=== PATIENT | female | born 1960 | race American Indian/Alaskan Native ===

== ENCOUNTER 2017-05-08 06:11 | Emergency (ER) | payer BC ==
--- NOTE | 2017-05-08 07:12 | XRay Report ---
FINAL REPORT EXAM: XR ELBOW 2V RT HISTORY: Right elbow pain TECHNIQUE: AP and lateral views of the right elbow were submitted. FINDINGS: There are no skeletal or soft tissue abnormalities. IMPRESSION: Normal exam.
[2017-05-08 08:24] LABS: Anion Gap 16 mmol/L; BUN/Creatinine Ratio 19; Blood Urea Nitrogen 13 mg/dL (7-17); Calcium 9.3 mg/dL (8.4-10.2); Carbon Dioxide 26 mmol/L (22-30); Glucose 98 mg/dL (65-100); Potassium 3.9 mmol/L (3.6-5.0); Sodium 142 mmol/L (137-145)
[2017-05-08 08:26] LABS: Basophils % (Auto) 0.9 % (0.0-1.8); Eosinophils % (Auto) 1.1 % (0.0-4.3); Hematocrit 38.7 % (30.3-42.9); Hemoglobin 12.9 gm/dl (10.1-14.3); Mean Corpuscular HGB Conc 33 % (30-34); Mean Corpuscular Hemoglobin 29 pg (28-32); Mean Corpuscular Volume 88 fl (79-97); Platelet Count 330 K/mm3 (140-440); Red Blood Count 4.38 M/mm3 (3.65-5.03); Red Cell Distribution Width 13.6 % (13.2-15.2); White Blood Count 8.9 K/mm3 (4.5-11.0)
[2017-05-08 08:34] VITALS: BP 134/80
--- NOTE | 2017-05-08 09:12 | Emergency Department Report ---
ED General Adult HPI - General Chief complaint: Upper Respiratory Infection Stated complaint: WHEEZING/COUGH/CONGESTION Time Seen by Provider: 05/08/17 08:17 Source: patient Mode of arrival: Ambulatory Limitations: No Limitations - History of Present Illness Initial comments: Patient has a plug for symptoms. Some of which may be somatic in nature. She states that she's had intermittent coughing for 5 months and already had 2 x- rays. The cough is dry. She states the she came to the emergency department today because she heard a "whistling in her ears" and she thought she was wheezing. 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 She also complains of intermittent left-sided headache but does not have one now. Additionally she presented to triage with "contraction of my right elbow". At the time of my encounter she states that her contraction has resolved but she has some swelling at the right elbow. 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 Apparently the patient was stating that she could not extend her right elbow 3 weeks in triage. An x-ray was obtained. The patient's headache syndrome has been present for years. She had a CT examination here in 2011 and 2013. The first one was read as normal the second one was read as a grade 1 Arnold-Chiari malformation. The patient has been seen and evaluated by neurology and reassured that nothing needs to be done. However she is now telling me that she needs a neurosurgeon. -: month(s) Location: right, upper extremity Radiation: non-radiation Severity scale (0 -10): 0 Quality: aching Consistency: intermittent Improves with: none Worsens with: none Associated Symptoms: headaches. denies: chest pain, diaphoresis, fever/chills, loss of appetite, malaise, nausea/vomiting, rash, seizure, shortness of breath Treatments Prior to Arrival: none - Related Data Previous Rx's Medication Instructions Recorded Last Taken Type Azithromycin [Zithromax Z-KIMBERLY] 250 mg PO DAILY #6 tablet 02/14/14 Unknown Rx oxyCODONE /ACETAMINOPHEN [Percocet 2 tab PO Q6HR PRN #20 tablet 02/14/14 Unknown Rx 5/325] Azithromycin [Zithromax Z-KIMBERLY] 250 mg PO DAILY #6 tablet 05/29/14 Unknown Rx HYDROcodone/APAP 10-325 [[place] 1 each PO Q6HR PRN #12 tablet 05/29/14 Unknown Rx 10-325 mg TAB] Promethazine Dm [Phenergan Dm 5 ml PO Q6H PRN #120 ml 05/29/14 Unknown Rx 6.25/15 mg 5 ml] ALBUTEROL Inhaler [ProAir HFA 2 puff IH Q4H PRN #1 inhalation 05/08/17 Unknown Rx Inhaler] traMADol [Ultram] 50 mg PO Q6HR PRN #14 tablet 05/08/17 Unknown Rx Allergies Allergy/AdvReac Type Severity Reaction Status Date / Time No Known Allergies Allergy Verified 10/15/15 07:54 ED Review of Systems ROS: Stated complaint: WHEEZING/COUGH/CONGESTION Other details as noted in HPI Constitutional: denies: chills, fever Eyes: denies: eye pain, eye discharge, vision change ENT: denies: ear pain, throat pain Respiratory: cough (occasionally not currently or recently significant), wheezing. denies: shortness of breath Cardiovascular: denies: chest pain, palpitations Endocrine: no symptoms reported Gastrointestinal: other (reflux takes omeprazole). denies: abdominal pain, nausea, diarrhea Genitourinary: denies: urgency, dysuria, discharge Musculoskeletal: denies: back pain, joint swelling, arthralgia Skin: denies: rash, lesions Neurological: denies: headache, weakness, paresthesias Psychiatric: denies: anxiety, depression Hematological/Lymphatic: denies: easy bleeding, easy bruising ED Past Medical Hx - Past Medical History Additional medical history: Hypothyroidism stopped taking med 4 yrs ago - Surgical History Additional Surgical History: Hemorrhoidectomy, hysterectomy; hammer toe release - Social History Smoking Status: Never Smoker Substance Use Type: None - Medications Home Medications: Home Medications Medication Instructions Recorded Confirmed Last Taken Type Azithromycin [Zithromax Z-KIMBERLY] 250 mg PO DAILY #6 tablet 02/14/14 Unknown Rx oxyCODONE /ACETAMINOPHEN [Percocet 2 tab PO Q6HR PRN #20 tablet 02/14/14 Unknown Rx 5/325] Azithromycin [Zithromax Z-KIMBERLY] 250 mg PO DAILY #6 tablet 05/29/14 Unknown Rx HYDROcodone/APAP 10-325 [[place] 1 each PO Q6HR PRN #12 tablet 05/29/14 Unknown Rx 10-325 mg TAB] Promethazine Dm [Phenergan Dm 5 ml PO Q6H PRN #120 ml 05/29/14 Unknown Rx 6.25/15 mg 5 ml] ALBUTEROL Inhaler [ProAir HFA 2 puff IH Q4H PRN #1 inhalation 05/08/17 Unknown Rx Inhaler] traMADol [Ultram] 50 mg PO Q6HR PRN #14 tablet 05/08/17 Unknown Rx ED Physical Exam - General Limitations: No Limitations General appearance: alert, in no apparent distress - Head Head exam: Present: atraumatic, normocephalic - Eye Eye exam: Present: normal appearance. Absent: scleral icterus - ENT ENT exam: Present: normal exam, normal orophraynx, mucous membranes moist - Neck Neck exam: Present: normal inspection. Absent: tenderness - Respiratory Respiratory exam: Present: normal lung sounds bilaterally. Absent: respiratory distress - Cardiovascular Cardiovascular Exam: Present: regular rate, normal rhythm. Absent: systolic murmur, diastolic murmur, rubs, gallop - GI/Abdominal GI/Abdominal exam: Present: soft, normal bowel sounds. Absent: distended, tenderness, guarding, rebound, rigid - Extremities Exam Extremities exam: Present: normal inspection, full ROM, tenderness (perhaps some tenderness at the brachial radialis insertion area, no joint tenderness or effusion), normal capillary refill. Absent: pedal edema, calf tenderness - Back Exam Back exam: Present: normal inspection - Neurological Exam Neurological exam: Present: alert, oriented X3, CN II-XII intact. Absent: motor sensory deficit - Psychiatric Psychiatric exam: Present: normal affect, normal mood - Skin Skin exam: Present: warm, dry, intact, normal color. Absent: rash ED Course Vital Signs 05/08/17 05/08/17 06:14 08:30 Temperature 98.3 F 98.0 F Pulse Rate 67 70 Respiratory 18 18 Rate Blood Pressure 147/72 Blood Pressure 134/80 [Left] O2 Sat by Pulse 100 100 Oximetry - Reevaluation(s) Reevaluation #1: The patient's pulse oximetry remained a solid 100% on room air. She had no respiratory symptoms. She is appropriate for outpatient referral. 05/08/17 09:14 ED Medical Decision Making - Lab Data Result diagrams: 05/08/17 07:11 05/08/17 07:11 Laboratory Results - last 24 hr 05/08/17 05/08/17 07:11 07:11 WBC 8.9 RBC 4.38 Hgb 12.9 Hct 38.7 MCV 88 MCH 29 MCHC 33 RDW 13.6 Plt Count 330 Lymph % (Auto) 33.9 [place] % (Auto) 7.3 Eos % (Auto) 1.1 Baso % (Auto) 0.9 Lymph # 3.0 [place] # 0.7 Eos # 0.1 Baso # 0.1 Seg Neutrophils % 56.8 Seg Neutrophils # 5.0 Sodium 142 Potassium 3.9 Chloride 104.0 Carbon Dioxide 26 Anion Gap 16 BUN 13 Creatinine 0.7 Estimated GFR > 60 BUN/Creatinine Ratio 19 Glucose 98 Calcium 9.3 - Radiology Data Radiology results: report reviewed interpreted by me: Elbow is normal. Critical care attestation.: If time is entered above; I have spent that time in minutes in the direct care of this critically ill patient, excluding procedure time. ED Disposition Clinical Impression: Tendinitis of right elbow Reactive airways dysfunction syndrome Qualifiers: Asthma severity: mild Asthma persistence: intermittent Asthma complication type : uncomplicated Qualified Code(s): J45.20 - Mild intermittent asthma, uncomplicated Disposition: - TO HOME OR SELFCARE Is pt being admited?: No Does the pt Need Aspirin: No Condition: Stable Instructions: Reactive Airways Disease (ED), Tendinitis (ED) Additional Instructions: See referral to a lung specialist for your wheezing and coughing problem. See referral to orthopedist should your elbow remain tender. Also follow-up your primary care provider. Prescriptions: ALBUTEROL Inhaler [ProAir HFA Inhaler] 2 puff IH Q4H PRN #1 inhalation PRN Reason: Wheezing traMADol [Ultram] 50 mg PO Q6HR PRN #14 tablet PRN Reason: Pain Referrals: ALYSON VILLA MD [Primary Care Provider] - 3-5 Days BOUCHRA ESPINOZA MD [Staff Physician] - 3-5 Days MERY CEBALLOS MD [Staff Physician] - 3-5 Days Time of Disposition: 09:18
== END 2017-05-08 09:42 | disposition home or self-care (01) ==
LOC: ED 06:11
DX: J45.20 Mild intermittent asthma, uncomplicated (principal); M77.9 Enthesopathy, unspecified; E03.9 Hypothyroidism, unspecified
CPT/HCPCS: 36415; 80048; 85025; 99283

== ENCOUNTER 2018-07-04 20:52 | Emergency (ER) | payer BC ==
[2018-07-04 23:10] VITALS: BP 155/75
[2018-07-05 00:33] LABS: Hematocrit 38.4 % (30.3-42.9); Hemoglobin 12.8 gm/dl (10.1-14.3); Mean Corpuscular HGB Conc 33 % (30-34); Mean Corpuscular Volume 88 fl (79-97); Platelet Count 367 K/mm3 (140-440); Red Blood Count 4.36 M/mm3 (3.65-5.03); Red Cell Distribution Width 13.1 % (13.2-15.2)
[2018-07-05 00:52] LABS: BUN/Creatinine Ratio 16; Blood Urea Nitrogen 13 mg/dL (7-17); Calcium 9.6 mg/dL (8.4-10.2); Hemolysis Index 7
--- NOTE | 2018-07-05 01:06 | Cat Scan Report ---
FINAL REPORT PROCEDURE: CT HEAD/BRAIN WO CON TECHNIQUE: Computerized tomography of the head was performed without contrast material. HISTORY: headache dizzy COMPARISON: Prior CT scan of the brain 02/14/2014 FINDINGS: Brain: Brain density appears normal. No evidence of intracranial hemorrhage. No parenchymal hemorrh age, mass lesions or mass effect are seen. No abnormal extraxial fluid collects or masses are seen. Ventricles: Ventricles are normal size and are midline. Bone Windows: No evidence of skull fracture. Paranasal sinuses: There is opacification of the visualized portion of the right side of the sphenoid sinus. This is unchanged from the prior study. Visualized paranasal sinuses otherwise are clear. Mastoid air cells: Clear IMPRESSION: Negative unenhanced CT scan of the brain. Persistent right-sided sphenoid sinus disease.
[2018-07-05 01:27] LABS: INR 0.89 (0.87-1.13)
[2018-07-05] MEDS ORDERED: REGLAN PO ONE (04:38)
[2018-07-05] MEDS ORDERED: DECADRON IM ONE (04:38)
[2018-07-05] MEDS ORDERED: BENADRYL PO ONE (04:38)
[2018-07-05] MEDS ORDERED: TYLENOL PO ONE (04:38)
--- NOTE | 2018-07-05 04:43 | Emergency Department Report ---
ED Headache HPI - General Chief Complaint: Headache Stated Complaint: HEADACHE Time Seen by Provider: 07/05/18 04:32 - History of Present Illness Initial Comments: pt is a a57 y/o aaf with hx of migraine headache who presents for headche intermittent for past 2 weeks pt denies fever or chills does endorse dental extraction 1 1/2 weeks ago however did not take abx as they upset her stomach, pt describes headache as 7/10 pressures occipital with aura this is same location as usual headche but has persisted for longer, there is no dizziness no lightheadedness mild photophobia no n/v pain is exacerbated by activity pain is relieved nothing tried, pt has follow up with neurology in am Dr. Jang but want pain control tonight. Timing/Duration: other (2 weeks intermittent ) Quality: pressure Head Injury Location: occipital Recent Head Trauma: frequent headaches Modifying Factors: improves with: exposure to light, movement Associated Symptoms: other (photophobia ) Allergies/Adverse Reactions: Allergies No Known Allergies Allergy (Verified 10/15/15 07:54) Home Medications: Ambulatory Orders Azithromycin [Zithromax Z-KIMBERLY] 250 mg PO DAILY #6 tablet 02/14/14 oxyCODONE /ACETAMINOPHEN [Percocet 5/325] 2 tab PO Q6HR PRN #20 tablet 02/14/14 Azithromycin [Zithromax Z-KIMBERLY] 250 mg PO DAILY #6 tablet 05/29/14 HYDROcodone/APAP 10-325 [[place] 10-325 mg TAB] 1 each PO Q6HR PRN #12 tablet 05/29/14 Promethazine Dm (Nf) [Phenergan Dm 6.25/15 mg 5 ml] 5 ml PO Q6H PRN #120 ml 05/29/14 ALBUTEROL Inhaler (OR & NICU) [ProAir HFA Inhaler] 2 puff IH Q4H PRN #1 inhalation 05/08/17 HYDROcodone/APAP 5-325 [[place] 5/325] 1 each PO Q6HR PRN #7 tablet 05/08/17 traMADol [Ultram] 50 mg PO Q6HR PRN #14 tablet 05/08/17 Acetaminophen [Tylenol Extra Strength] 1,000 mg PO QID PRN #30 tablet 07/05/18 Amoxicillin/Potassium Clav [Augmentin 875-125 Tablet] 1 each PO BID #20 tablet 07/05/18 Metoclopramide [Reglan] 10 mg PO Q6H PRN #30 tablet 07/05/18 diphenhydrAMINE [Benadryl CAP] 25 mg PO Q6HR PRN #30 capsule 07/05/18 ED Review of Systems ROS: Stated complaint: HEADACHE Other details as noted in HPI Constitutional: denies: chills, fever Eyes: denies: eye pain, eye discharge, vision change ENT: denies: ear pain, throat pain Respiratory: denies: cough, shortness of breath, wheezing Cardiovascular: denies: chest pain, palpitations Endocrine: no symptoms reported Gastrointestinal: denies: abdominal pain, nausea, diarrhea Genitourinary: denies: urgency, dysuria, discharge Musculoskeletal: denies: back pain, joint swelling, arthralgia Skin: denies: rash, lesions Neurological: headache. denies: vertigo Psychiatric: denies: anxiety, depression Hematological/Lymphatic: denies: easy bleeding, easy bruising ED Past Medical Hx - Past Medical History Additional medical history: Hypothyroidism stopped taking med 4 yrs ago - Surgical History Additional Surgical History: Hemorrhoidectomy, hysterectomy; hammer toe release - Social History Smoking Status: Never Smoker Substance Use Type: None - Medications Home Medications: Home Medications Medication Instructions Recorded Confirmed Last Taken Type Azithromycin [Zithromax Z-KIMBERLY] 250 mg PO DAILY #6 tablet 02/14/14 Unknown Rx oxyCODONE /ACETAMINOPHEN [Percocet 2 tab PO Q6HR PRN #20 tablet 02/14/14 Unknown Rx 5/325] Azithromycin [Zithromax Z-KIMBERLY] 250 mg PO DAILY #6 tablet 05/29/14 Unknown Rx HYDROcodone/APAP 10-325 [[place] 1 each PO Q6HR PRN #12 tablet 05/29/14 Unknown Rx 10-325 mg TAB] Promethazine Dm (Nf) [Phenergan Dm 5 ml PO Q6H PRN #120 ml 05/29/14 Unknown Rx 6.25/15 mg 5 ml] ALBUTEROL Inhaler (OR & NICU) 2 puff IH Q4H PRN #1 inhalation 05/08/17 Unknown Rx [ProAir HFA Inhaler] HYDROcodone/APAP 5-325 [[place] 1 each PO Q6HR PRN #7 tablet 05/08/17 Unknown Rx 5/325] traMADol [Ultram] 50 mg PO Q6HR PRN #14 tablet 05/08/17 Unknown Rx Acetaminophen [Tylenol Extra 1,000 mg PO QID PRN #30 tablet 07/05/18 Unknown Rx Strength] Amoxicillin/Potassium Clav 1 each PO BID #20 tablet 07/05/18 Unknown Rx [Augmentin 875-125 Tablet] Metoclopramide [Reglan] 10 mg PO Q6H PRN #30 tablet 07/05/18 Unknown Rx diphenhydrAMINE [Benadryl CAP] 25 mg PO Q6HR PRN #30 capsule 07/05/18 Unknown Rx ED Physical Exam - General Limitations: No Limitations General appearance: alert, in no apparent distress - Head Head exam: Present: atraumatic, normocephalic, normal inspection - Eye Eye exam: Present: normal appearance, PERRL, EOMI Pupils: Present: normal accommodation - ENT ENT exam: Present: normal orophraynx, mucous membranes moist, TM's normal bilaterally, normal external ear exam, other (left frontal sinus pain to palpation non erythema no swelling ) - Neck Neck exam: Present: normal inspection, full ROM. Absent: tenderness, meningis mus, lymphadenopathy, thyromegaly - Respiratory Respiratory exam: Present: normal lung sounds bilaterally. Absent: respiratory distress, wheezes, stridor, chest wall tenderness - Cardiovascular Cardiovascular Exam: Present: regular rate, normal heart sounds - GI/Abdominal GI/Abdominal exam: Present: soft, normal bowel sounds. Absent: tenderness, bruit, hernia - Rectal Rectal exam: Present: deferred - Extremities Exam Extremities exam: Present: normal inspection, full ROM, normal capillary refill. Absent: tenderness, calf tenderness - Back Exam Back exam: Present: normal inspection, full ROM. Absent: tenderness, CVA tenderness (R), CVA tenderness (L) - Neurological Exam Neurological exam: Present: alert, oriented X3, CN II-XII intact, normal gait, reflexes normal. Absent: motor sensory deficit - Expanded Neurological Exam Expanded Patient oriented to: Present: person, place, time Speech: Present: fluid speech Cranial nerves: EOM's Intact: Normal, Gag Reflex: Normal, Tongue Deviation: Normal, Nystagmus: Normal, Facial Sensation: Normal Cerebellar function: Finger to Nose: Normal, Heel to Kurtz: Normal, Romberg: Normal Upper motor neuron: Aldo Neglect: Normal, Pronator Drift: Normal, Babinski Sign: Normal, Sensory Extinction: Normal Motor strength exam: RUE: 5, LUE: 5, RLE: 5, LLE: 5 Best Eye Response (Iván): (4) open spontaneously Best Motor Response ([place]): (6) obeys commands Best Verbal Response ([place]): (5) oriented Iván Total: 15 - Psychiatric Psychiatric exam: Present: normal affect - Skin Skin exam: Present: warm, dry, intact, normal color. Absent: rash ED Course Vital Signs 07/04/18 23:08 Temperature 97.4 F L Pulse Rate 71 Respiratory 16 Rate Blood Pressure 155/75 O2 Sat by Pulse 98 Oximetry ED Medical Decision Making - Lab Data Result diagrams: 07/04/18 23:55 07/04/18 23:55 Labs 07/04/18 07/04/18 07/04/18 23:55 23:55 23:55 WBC 8.4 RBC 4.36 Hgb 12.8 Hct 38.4 MCV 88 MCH 29 MCHC 33 RDW 13.1 L Plt Count 367 PT 12.4 INR 0.89 Sodium 140 Potassium 3.5 L Chloride 102.8 Carbon Dioxide 27 Anion Gap 14 BUN 13 Creatinine 0.8 Estimated GFR > 60 BUN/Creatinine Ratio 16 Glucose 96 Calcium 9.6 Magnesium 2.10 Total Creatine Kinase 213 H - Radiology Data Radiology results: report reviewed, image reviewed FINAL REPORT PROCEDURE: CT HEAD/BRAIN WO CON TECHNIQUE: Computerized tomography of the head was performed without contrast material. HISTORY: headache dizzy COMPARISON: Prior CT scan of the brain 02/14/2014 FINDINGS: Brain: Brain density appears normal. No evidence of intracranial hemorrhage. No parenchymal hemorrhage, mass lesions or mass effect are seen. No abnormal extraxial fluid collects or masses are seen. Ventricles: Ventricles are normal size and are midline. Bone Windows: No evidence of skull fracture. Paranasal sinuses: There is opacification of the visualized portion of the right side of the sphenoid sinus. This is unchanged from the prior study. Visualized paranasal sinuses otherwise are clear. Mastoid air cells: Clear IMPRESSION: Negative unenhanced CT scan of the brain. Persistent right-sided sphenoid sinus disease. Transcribed By: EPIFANIO Dictated By: AGATHA PATEL MD Electronically Authenticated By: AGATHA PATEL MD Signed Date/Time: 07/05/18105 DD/ 5 TD/TT: 07/05/18105 - Medical Decision Making CT head positive for sigmoid opacification left frontal sinus and palpation on exam no other neuro deficits no weakness no paralysis prior Decadron Tylenol Reglan Benadryl for headache headache is improved with DC to home with prescription for Augmentin Tylenol and Benadryl Reglan when necessary headache visual follow with Dr. Dr. JANG neurology in a.m. as scheduled pt will return to emergency if symptoms should worsen, Critical care attestation.: If time is entered above; I have spent that time in minutes in the direct care of this critically ill patient, excluding procedure time. ED Disposition Clinical Impression: Sinus headache Sinusitis Qualifiers: Sinusitis location: sphenoidal Chronicity: acute Recurrence: non-recurrent Qualified Code(s): J01.30 - Acute sphenoidal sinusitis, unspecified Disposition: DC-01 TO HOME OR SELFCARE Is pt being admited?: No Does the pt Need Aspirin: No Condition: Stable Instructions: Sinusitis (ED), Acute Headache (ED) Prescriptions: Acetaminophen [Tylenol Extra Strength] 1,000 mg PO QID PRN #30 tablet PRN Reason: Headache Amoxicillin/Potassium Clav [Augmentin 875-125 Tablet] 1 each PO BID #20 tablet diphenhydrAMINE [Benadryl CAP] 25 mg PO Q6HR PRN #30 capsule PRN Reason: Headache Metoclopramide [Reglan] 10 mg PO Q6H PRN #30 tablet PRN Reason: Headache Referrals: MOE JANG MD [Referring] - 3-5 Days Forms: Work/School Release Form(ED) Time of Disposition: 04:52
== END 2018-07-05 05:30 | disposition home or self-care (01) ==
LOC: ED 20:52
DX: J01.30 Acute sphenoidal sinusitis, unspecified (principal); E03.9 Hypothyroidism, unspecified; Z90.710 Acquired absence of both cervix and uterus
CPT/HCPCS: 36415; 70450; 80048; 82550; 83735; 85027; 85610; 96372; 99284; J1100

== ENCOUNTER 2018-10-27 13:13 | Emergency (ER) | payer BC ==
--- NOTE | 2018-10-27 13:25 | Event Note ---
ED Screening Note ED Screening Note: post menopausal never smoker syncope at work bs 76 no cp no sob today she has had recent sob with walking 12 steps even her daughter is a nurse had headache last PM- took motrin 0200 no headache today NO FOCAL DEF AT 1330 pmh hypothyroid psh none rx none off thyroid dad alive- dm/ckd mom htn This initial assessment/diagnostic orders/clinical plan/treatment(s) is/are subject to change based on patients health status, clinical progression and re- assessment by fellow clinical providers in the ED. Further treatment and workup at subsequent clinical providers discretion. Patient/guardian urged not to elope from the ED as their condition may be serious if not clinically assessed and managed. Initial orders include: ct ekg labs urine C Russ SALVADOR
[2018-10-27 14:41] LABS: Basophils # (Auto) 0.1 K/mm3 (0.0-0.1); Basophils % (Auto) 0.9 % (0.0-1.8); Eosinophils # (Auto) 0.1 K/mm3 (0.0-0.4); Eosinophils % (Auto) 1.6 % (0.0-4.3); Hematocrit 36.4 % (30.3-42.9); Hemoglobin 12.6 gm/dl (10.1-14.3); Lymphocytes # (Auto) 2.2 K/mm3 (1.2-5.4); Lymphocytes % (Auto) 33.3 % (13.4-35.0); Mean Corpuscular HGB Conc 35 % (30-34); Mean Corpuscular Volume 87 fl (79-97); Monocytes # (Auto) 0.5 K/mm3 (0.0-0.8); Monocytes % (Auto) 7.9 % (0.0-7.3); Platelet Count 325 K/mm3 (140-440); Red Blood Count 4.17 M/mm3 (3.65-5.03); Red Cell Distribution Width 13.7 % (13.2-15.2)
--- NOTE | 2018-10-27 15:03 | Cat Scan Report ---
CT HEAD WITHOUT CONTRAST: HISTORY: Syncope. TECHNIQUE: Sequential 2.5mm CT images. COMPARISON: 07/05/18. FINDINGS: Cerebral Parenchyma: Within normal limits. Cerebellum: Within normal limits. Brainstem: Within normal limits. Ventricles: Normal. Sella: Normal. Extra-axial spaces: Normal. Basal Cisterns: Normal. Intracranial Hemorrhage: None. Midline Shift: None. Calvarium: Normal. Sinuses: Normal. Mastoid Air Cells: Normal. Visualized Orbits: Normal. IMPRESSION: Cranial CT scan within normal limits.
[2018-10-27 15:07] LABS: Bacteria,Urine 1+ /HPF (Negative); Bilirubin,Urine NEG (Negative); Blood,Urine SM (Negative); Color,Urine Straw (Yellow); Mucus,Urine FEW /HPF; Protein,Urine <15 mg/dL mg/dL (Negative); RBC,Urine < 1.0 /HPF (0.0-6.0); Urobilinogen,Urine < 2.0 mg/dL (<2.0)
[2018-10-27 15:11] LABS: Alanine Aminotransferase 13 units/L (7-56); Albumin 3.8 g/dL (3.9-5); BUN/Creatinine Ratio 16; Blood Urea Nitrogen 11 mg/dL (7-17); Calcium 9.6 mg/dL (8.4-10.2); Hemolysis Index 3
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
[2018-10-27 17:19] VITALS: BP 160/67
== END 2018-10-27 17:19 | disposition home or self-care (01) ==
LOC: ED 13:13
DX: R03.0 Elevated blood-pressure reading, without diagnosis of hypertension (principal); R55 Syncope and collapse; E03.9 Hypothyroidism, unspecified; Z90.710 Acquired absence of both cervix and uterus
CPT/HCPCS: 36415; 70450; 80053; 81001; 84443; 84484; 85025; 93005; 93010

== ENCOUNTER 2019-03-29 01:09 | Emergency (ER) | payer OTHER, BC ==
[2019-03-29 01:24] VITALS: BP 138/62
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
== END 2019-03-29 04:10 | disposition home or self-care (01) ==
LOC: ED 01:09
DX: M54.2 Cervicalgia (principal); R51 Headache; M54.9 Dorsalgia, unspecified; K21.9 Gastro-esophageal reflux disease without esophagitis; E03.9 Hypothyroidism, unspecified; V49.49XA Driver injured in collision with other motor vehicles in traffic accident, initial encounter; Y93.89 Activity, other specified; Y92.488 Other paved roadways as the place of occurrence of the external cause; Y99.8 Other external cause status
CPT/HCPCS: 72040; 72100

== ENCOUNTER 2021-06-08 18:34 | Emergency (ER) | payer BC, OTHER | END 2021-06-08 20:00 | disposition left against medical advice (07) | LOC: ED 18:34 | DX: R05.9 Cough, unspecified (principal); Z53.21 Procedure and treatment not carried out due to patient leaving prior to being seen by health care provider ==